=== PATIENT | female | born 1980 | race Caucasian/White ===

== ENCOUNTER 2020-06-25 19:49 | Emergency (ER) | payer OTHER ==
[~2020-06-25] VITALS: Ht 157.5 cm; Wt 104.3 kg
[2020-06-25] MEDS ORDERED: TOPAMAX50 MG PO (20:05)
[2020-06-25] MEDS ORDERED: FLONASE 0.05%50 MCG NARES (20:05)
[2020-06-25] MEDS ORDERED: HYDROXYZINE HCL25 M2 PO (20:05)
[2020-06-25] MEDS ORDERED: LIPITOR10 MG PO (20:05)
[2020-06-25] MEDS ORDERED: BUTALB-APAP-CA1 EACH PO (20:05)
[2020-06-25] MEDS ORDERED: LORATIDINE 10 M10 M1 PO (20:05)
[2020-06-25] MEDS ORDERED: AMITRIPTYLINE H25 M2 PO (20:06)
[2020-06-25] MEDS ORDERED: ONDANSETRON HCL4 M2 PO (20:41)
[2020-06-25 20:50] VITALS: BP 114/68
== END 2020-06-25 20:51 | disposition home or self-care (01) ==
LOC: M.ERS 19:49
DX: G43.909 Migraine, unspecified, not intractable, without status migrainosus (principal); Z79.899 Other long term (current) drug therapy